=== PATIENT | female | born 1950 | race Caucasian/White ===

== ENCOUNTER 2023-08-21 17:12 | Emergency (ER) | payer BC, MEDICAID ==
[~2023-08-21] VITALS: Ht 157.5 cm; Wt 81.8 kg
[2023-08-21 17:15] VITALS: BP 211/89; PULSE 78; RESP 16; TEMP 98; O2SAT 97
== END 2023-08-21 18:17 | disposition home or self-care (01) ==
LOC: ER 17:12
DX: S60.222A Contusion of left hand, initial encounter (principal); S67.22XA Crushing injury of left hand, initial encounter; X58.XXXA Exposure to other specified factors, initial encounter; Y93.89 Activity, other specified; Y92.89 Other specified places as the place of occurrence of the external cause; Y99.8 Other external cause status
CPT/HCPCS: 73130; 99283

== ENCOUNTER 2024-05-01 11:32 | Emergency (ER) | payer BC, MEDICAID ==
[~2024-05-01] VITALS: Ht 157.5 cm; Wt 80.6 kg
[2024-05-01] MEDS: DOXYCYCLINE 100MG CAPSULE PO STA (14:17)
[2024-05-01] MEDS ORDERED: DOXY-1 PO (14:28)
[2024-05-01 14:32] VITALS: BP 190/93; PULSE 89; RESP 16; TEMP 98; O2SAT 99
== END 2024-05-01 14:33 | disposition home or self-care (01) ==
LOC: ER 11:33
DX: S60.511A Abrasion of right hand, initial encounter (principal); L03.113 Cellulitis of right upper limb; W55.03XA Scratched by cat, initial encounter; Y93.89 Activity, other specified; Y92.89 Other specified places as the place of occurrence of the external cause; Y99.8 Other external cause status
CPT/HCPCS: 99283

== ENCOUNTER 2025-02-06 09:23 | Emergency (ER) | payer MEDICARE, OTHER ==
[~2025-02-06] VITALS: Ht 157.5 cm; Wt 78.2 kg
[2025-02-06 09:32] VITALS: BP 174/79; PULSE 67; RESP 18; TEMP 98.4; O2SAT 99
[2025-02-06 10:08] LABS: MEAN PLATELET VOLUME 9.3 FL (7.4-10.4); RED CELL DISTRIBUTION WIDTH 13.7 % (11.5-14.5)
[2025-02-06 10:27] LABS: CREATININE 0.67 MG/DL (0.40-0.90); TOTAL CARBON DIOXIDE 27.5 MMOL/L (24-32); eCRCL 60 ML/MIN; eGFR 87 ML/MIN
--- NOTE | 2025-02-06 13:57 | Physician Documentation ---
History of Present Illness ~ Chief Complaint: Rectal Bleeding Stated Complaint: ABD PAIN Time Seen by MD: 11:18 Primary Medical Doctor: [facility] HPI Patient is seen today with complaints of bright red blood per rectum that started a couple of days ago after she has been having multiple bouts an episodes of diarrhea that started three days ago. Patient states she did feel some chills at that time but denies any fever. She states she did have a flu shot about a month ago. She denies any cough or chest pain or shortness of breath or nausea or vomiting. She has no other concern or complaint at this time. She denies any dysuria or urinary urgency or frequency but states she does have a sensation of fullness in her bladder. Medication Reconciliation Allergies: Coded Allergies: No Known Allergies (Unverified , 02/06/25) Review of Systems Constitutional: Denies: chills, fever, weakness Eyes: Denies: pain, blurred vision ENT: Denies: ear pain, nose pain, throat pain, mouth pain Respiratory: Denies: cough, shortness of breath Cardiovascular: Denies: chest pain, palpitations Gastrointestinal: Denies: abdominal pain, nausea, vomiting Genitourinary: Denies: burning, dysuria Female Genitalia: Denies: vaginal discharge, pelvic pain Neurological: Denies: headache, dizziness Musculoskeletal: Denies: pain, swelling Integumentary: Denies: rash, lesions Allergic/Immunologic: Denies: hives, itching Hematologic/Lymphatic: Denies: no symptoms reported Psychiatric: Denies: depression, anxiety Physical Exam Vital Signs: Temperature: 98.4, Source: Temporal, Heart Rate: 67, Respiratory Rate: 18, BP: 174/79, Pulse Oximetry: 99, Weight: 78.200 Oxygen Flow Rate: 0 Physical Exam General: Awake and Alert, no acute distress. HEENT: Conjunctiva pink, Sclera clear, Mucus Membranes moist. Neck: Supple without masses and tenderness. Resp: Unlabored. Lungs clear to auscultation bilaterally. Heart: Regular Rate and rhythm, normal S1 and S2 without murmur, rub or gallop. Abdomen: Abdomen is soft, nondistended, mild abdominal tenderness of the lower abdomen, no other abdominal tenderness, no rebound, no guarding, no masses. Extremities: No cyanosis,clubbing or edema. Skin: Warm and Dry. Progress Results/Orders Results/Orders Completed Orders - CADETJEANNETTEJULIA Jose PAC Procalcitonin (02/06/25 13:45) Lacticsepsis (02/06/25 13:45) Ua W/Microscopic, Cult If Ind (02/06/25 13:51) Vital Signs 02/06/25 09:32 Temp 98.4 Pulse 67 Resp 18 B/P (MAP) 174/79 Pulse Ox 99 O2 Flow Rate 0 Laboratory Tests Test 02/06/25 09:53 02/06/25 13:51 White Blood Count 6.5 Red Blood Count 4.74 Hemoglobin 14.1 Hematocrit 42.6 Mean Corpuscular Volume 89.8 Mean Corpuscular Hemoglobin 29.8 Mean Corpuscular Hemoglobin Concent 33.2 Red Cell Distribution Width 13.7 Platelet Count 168 Mean Platelet Volume 9.3 Neutrophils (%) (Auto) 67.4 Lymphocytes (%) (Auto) 21.0 Monocytes (%) (Auto) 9.4 Eosinophils (%) (Auto) 1.8 Basophils (%) (Auto) 0.4 Neutrophils # (Auto) 4.3 Lymphocytes # (Auto) 1.4 Monocytes # (Auto) 0.6 Eosinophils # (Auto) 0.1 Basophils # (Auto) 0.0 CBC Comment Sodium Level 142 Potassium Level 3.9 Chloride Level 106 Carbon Dioxide Level 27.5 Anion Gap 9 Blood Urea Nitrogen 17 Creatinine 0.67 Estimated GFR/1.73 m2 87 BUN/Creatinine Ratio 25.4 H Glucose Level 100 Lactic Acid Level 0.6 Calcium Level 9.0 Total Bilirubin 1.3 H Aspartate Amino Transf (AST/SGOT) 21 Alanine Aminotransferase (ALT/SGPT) 29 Alkaline Phosphatase 78 Total Protein 7.3 Albumin 3.4 Globulin 3.9 Albumin/Globulin Ratio 0.9 L Lipase 25 Procalcitonin < 0.05 Chemistry Comments Urine Specimen Description Cln catch midstream Urine Color Yellow Urine Clarity Clear Urine pH 6.0 Urine Specific [place] 1.025 Urine Protein Negative Urine Glucose (UA) Negative Urine Ketones Trace H Urine Occult Blood Trace-intact Urine Nitrite Negative Urine Bilirubin Negative Urine Urobilinogen 0.2 Urine Leukocyte Esterase Negative Urine RBC 3-10 Urine WBC 0-4 Urine Squamous Epithelial Cells Few Urine Bacteria Few Urine Culture Indicated Not ind Volume Urine Centrifuged 10 ml Urine Comment Medical Decision Making Findings Patient is seen today with complaints of bright red blood per rectum that started a couple of days ago after she has been having multiple bouts an episodes of diarrhea that started three days ago. Patient states she did feel some chills at that time but denies any fever. She states she did have a flu shot about a month ago. She denies any cough or chest pain or shortness of breath or nausea or vomiting. She has no other concern or complaint at this t varun. She denies any dysuria or urinary urgency or frequency but states she does have a sensation of fullness in her bladder. Patient did have labs that returned largely unremarkable with normal white count and no sign of UTI. Patient symptoms are likely resulting from viral enteritis. Patient will follow up with primary care in 2-5 days if no better as needed sooner. Return to ED with any worsening, concerning or changing symptoms. Departure Disposition: HOME / SELF CARE / HOMELESS Impression: Primary Impression: BRBPR (bright red blood per rectum) Condition: Improved Discharge Instructions: Stool for Occult Blood Test Additional Instructions: Patient did have labs that returned largely unremarkable with normal white count and no sign of UTI. Patient symptoms are likely resulting from viral enteritis. Patient will follow up with primary care in 2-5 days if no better as needed sooner. Return to ED with any worsening, concerning or changing symptoms. Referrals: NO PRIMARY CARE PROVIDER (PCP) Signature Scribe Signature: No scribe Attestation: No scribe JULIA CADET PAC Feb 06, 2025 13:57
[2025-02-06 14:06] LABS: LEUKOCYTE ESTERASE ,URINE NEGATIVE (Neg); NITRITES, URINE NEGATIVE (Neg); OCCULT BLOOD,URINE TRACE-INTACT (Neg)
[2025-02-06 14:13] LABS: UA COLLECTION TYPE CLN CATCH MIDSTREAM
[2025-02-06 14:16] LABS: SQUAMOUS EPITHELIAL CELL,UR FEW /LPF (FEW)
== END 2025-02-06 15:11 | disposition home or self-care (01) ==
LOC: ER 09:24
DX: K62.5 Hemorrhage of anus and rectum (principal)
CPT/HCPCS: 36415; 80053; 81001; 83605; 83690; 84145; 85025; 99283